=== PATIENT | female | born 1985 | race Caucasian/White ===

== ENCOUNTER 2017-09-26 09:52 | Emergency (ER) | payer BC ==
[~2017-09-26] VITALS: Ht 170.2 cm; Wt 95.3 kg
[2017-09-26 10:01] VITALS: BP_SYST 125
[2017-09-26 12:15] VITALS: BP_SYST 125
== END 2017-09-26 12:15 | disposition home or self-care (01) ==
LOC: SED 09:52
DX: S93.402A Sprain of unspecified ligament of left ankle, initial encounter (principal); W18.40XA Slipping, tripping and stumbling without falling, unspecified, initial encounter; Y93.89 Activity, other specified; Y92.89 Other specified places as the place of occurrence of the external cause; Y99.8 Other external cause status
CPT/HCPCS: 99284